=== PATIENT | male | born 1985 ===

== ENCOUNTER → 2022-07-23 | Day surgery (SDC) | payer OTHER ==
[~2022-07-23] VITALS: Ht 175.3 cm; Wt 77.1 kg
[~2022-07-23] MED LIST: DELZICOL PO; NEURONTIN300 MG PO; PERCOCET 5-3251 EACH PO; POLY119PG PO
== END | disposition home or self-care (01) ==
LOC: ADM 07-21 10:45 → CIR.AMB 07:58
PROVIDERS: ATTEND Surgery
DX: K40.90 Unilateral inguinal hernia, without obstruction or gangrene, not specified as recurrent (principal); Z20.822 Contact with and (suspected) exposure to COVID-19; Z88.6 Allergy status to analgesic agent; F12.90 Cannabis use, unspecified, uncomplicated
CPT/HCPCS: 49650; C1781